=== PATIENT | male | born 1965 | race Caucasian/White ===

== ENCOUNTER 2019-04-16 22:56 | Observation (INO) ==
[2019-04-16] MEDS ORDERED: 0.9 % Sodium Chloride 1,000 ML IVC ONE (23:25)
--- NOTE | 2019-04-16 23:26 | Emergency Department Note ---
Disposition Clinical Impression: Altered mental status Qualifiers: Altered mental status type: unspecified Qualified Code(s): R41.82 - Altered mental status, unspecified Disposition: Admitted As Inpatient Condition: Good [facility] Care Provider[facility] - Forms: ED Satisfaction Letter Time of Disposition: 02:02 General Adult HPI - General Chief complaint: ED Nausea/Vomiting/Diarrhea Stated complaint: nausea and vomiting Time Seen by Provider: 04/16/19 22:58 Source: EMS Limitations: no limitations Nursing Notes Reviewed: Yes Vital Signs Reviewed: Yes - History of Present Illness HPI Narrative: Male patient presenting by EMS for nausea vomiting and not feeling well. Patient reports not feeling well. He believes that he may possibly have the flu. Was recently discharged from the the hospital here for a right sided lower extremity vascular surgery by Dr. Arriaga. Patient reports he has not been feeling well since he was discharged. He states that he has not been able to ambulate well since discharge. He does report that today he became very sick. He contributes this to having his windows open over the weekend and the cool breeze coming through. He states that today he had to crawl out into the hallway to get someone to help him. He does report one episode of nonbloody nonbilious emesis. Patient does appear to be mildly confused at this time. Does have a history of alcohol abuse. Has been admitted here for that previously. He states he is only had 3 beers today however. 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 States he has been taking his medication as prescribed he believes. Again he states his symptoms have been present since he was discharged from the hospital. Pain Scale: 0 - Related Data Home Medications Medication Instructions Recorded Confirmed Albuterol Sulfate [Proair Hfa] 2 puff IH QID PRN 02/10/19 04/04/19 Baclofen [Lioresal] 10 mg PO TID 02/10/19 04/04/19 Budesonide/Formoterol 80/4.5 2 puff IH BID 02/10/19 04/04/19 [Symbicort 80/4.5] Buspirone HCl [Buspar] 10 mg PO TID 02/10/19 04/04/19 Fluticasone Propionate Nasal 1 spray NS BID 02/10/19 04/04/19 [Flonase] Gabapentin [Neurontin] 1,200 mg PO Q8H 02/10/19 04/04/19 Hydrochlorothiazide [Microzide] 12.5 mg PO QAM 02/10/19 04/04/19 Loratadine [Allergy Relief] 10 mg PO DAILY 02/10/19 04/04/19 Melatonin 6 mg PO HS 02/10/19 04/04/19 Metoprolol Succinate [Toprol Xl] 25 mg PO HS 02/10/19 04/04/19 Multivitamin [One Daily] 1 tab PO DAILY 02/10/19 04/04/19 Omeprazole [PriLOSEC] 20 mg PO DAILY 02/10/19 04/04/19 Salsalate [Disalcid] 750 mg PO TID PRN 02/10/19 04/04/19 Acamprosate Calcium 666 mg PO TID 04/04/19 04/04/19 Aspirin [Lo-Dose Aspirin EC] 81 mg PO QAM 04/04/19 04/04/19 Atorvastatin [Lipitor] 20 mg PO HS 04/04/19 04/04/19 DULoxetine [Cymbalta] 30 mg PO DAILY 04/04/19 04/04/19 Duloxetine HCl [Cymbalta] 60 mg PO DAILY 04/04/19 04/04/19 HydrOXYzine 10 mg PO QID 04/04/19 04/04/19 Ibuprofen [Ibu] 800 mg PO TID PRN 04/04/19 04/04/19 Lidocaine [Lidocare] 1 each TD Q24H PRN 04/04/19 04/04/19 Nicotine Polacrilex [Nicotine 2 mg BC Q4H PRN 04/04/19 04/04/19 Lozenge] Trazodone HCl 150 mg PO HS PRN 04/04/19 04/04/19 Previous Rx's Medication Instructions Recorded Amoxicillin/Clavulanate [Augmentin] 875 mg PO BIDWM tablet 04/11/19 Allergies Allergy/AdvReac Type Severity Reaction Status Date / Time No Known Allergies Allergy Verified 04/16/19 23:08 All systems ED: reviewed and negative except as stated. Review of Systems: As Per HPI Constitutional: Denies: fever ENT ED: Reports: congestion (Nasal) Cardiovascular: Denies: chest pain Respiratory: Reports: cough (Reports chronic as he is a smoker) Gastrointestinal: Reports: nausea, vomiting. Denies: abdominal pain, diarrhea Integumentary: Denies: rash Neurological: Reports: weakness, confusion. Denies: headache Endocrine: Reports: fatigue Past Medical History - Past Medical History Attestation: Yes The following information was validated with the patient. Source: patient Medical history: Reports: COPD, hypertension, seizures, other Psychiatric history: Reports: anxiety, depression - Social History Smoking Status: Current every day smoker Smokeless Tobacco Status: No Alcohol use: Reports: heavy, recent Drug use: Reports: marijuana Physical Exam - General Limitations: no limitations General appearance: alert, appears intoxicated - Head Head exam: atraumatic, normocephalic, normal inspection - Eye Eye exam: Present: normal appearance, PERRL, EOMI - ENT ENT exam: normal exam, normal oropharynx, mucous membranes moist - Neck Neck exam: Present: normal inspection, full ROM, trachea midline - Chest Chest inspection: Present: normal inspection, symmetric chest wall rise. Absent: tenderness - Respiratory Respiratory exam: Present: normal lung sounds bilaterally. Absent: respiratory distress, wheezes, accessory muscle use - Cardiovascular Cardiovascular exam: Present: regular rate, normal rhythm, normal heart sounds - Abdominal Exam Abdominal exam: Present: soft, Non-Tender. Absent: tenderness, distention, guarding, rebound, rigidity, organomegaly, Allen's sign, Rovsing's sign, tenderness at McBurney's Point - Extremities Exam Extremities exam: Present: normal inspection, full ROM, normal capillary refill. Absent: tenderness, pedal edema - Neurological Exam Neurological exam: Present: alert, CN II-XII intact (Patient does have some garbled speech but it is distinguishable.), other (Knows his name. Is unaware of where he is up-to-date. Patient does have decreased movement in his lower extremities.). Absent: motor sensory deficit - Skin Skin exam: Present: warm, dry, intact, normal color. Absent: rash Course Course Narrative: Patient with a significant history of alcohol abuse. Has had withdrawal seizures previously. Patient does appear to be confused with some garbled speech. He has good finger to nose bilaterally. He has generalized weakness in his bilateral lower extremities but no focal abnormalities noted. CT head did show some microvascular changes mainly in the cerebellum that appear on previous CT. We did provide patient with a liter of fluid as well as thiamine and folate. Patient's ammonia is not significantly elevated. His blood alcohol level was at 153. We will admit patient to the hospital for further evaluation of her altered mental status and generalized weakness of his lower extremities. Patient's chest x-ray did show some low lung volumes. We will withhold antibiotics at this time as the patient does not have acute focal rhonchi in any distribution we will load and landed for repeat chest x-ray it the patient does develop symptoms. He states he does have a cough but this is not abnormal for him as he is a smoker. Patient did have a maxillary fracture that was not on previous CT as well. I do not feel this is new. Patient does report however frequent falls recently whi le at home. There is no ecchymosis to his face. No overt signs of trauma to his body. - Consultations Consultation #1: Dr Paris accepted Pt in stable condition. Time: 02:13 Vital Signs Temperature 98.3 F 04/16/19 23:09 Pulse Rate 88 04/16/19 23:09 Respiratory Rate 14 04/16/19 23:09 Blood Pressure 108/89 04/16/19 23:09 O2 Sat by Pulse Oximetry 92 04/16/19 23:09 Temperature 98.3 F 04/16/19 23:09 Pulse Rate 76 04/17/19 01:33 Respiratory Rate 16 04/17/19 01:33 Blood Pressure 106/75 04/17/19 01:33 O2 Sat by Pulse Oximetry 95 04/17/19 01:33 Oxygen Delivery Oxygen Delivery Room Air Medical Decision Making - Medical Records Medical records reviewed: Yes I reviewed the patient's medical records. - Lab Data Lab results reviewed: Yes I reviewed the patient's lab results. Result diagrams: 04/16/19 23:51 04/16/19 23:51 Lab Results 04/16/19 04/16/19 04/16/19 Range/Units 23:51 23:51 23:51 WBC 9.5 (4.3-11.1) K/mcL RBC 4.90 (4.19-5.50) M/mcL Hgb 14.8 D (12.9-16.9) g/dL Hct 43.7 (37.5-50.1) % MCV 89.2 (83.0-100.0) fL MCH 30.2 (28.0-33.3) pg MCHC 33.9 (31.6-35.5) g/dL RDW 13.8 (11.5-14.5) % Plt Count 368 D (140-400) K/mcL MPV 9.5 (9.4-12.4) fL Immature Gran % 1.2 (0-4) % Seg Neutrophils % 57.4 % Lymphocytes % 27.3 % Monocytes % 8.8 % Eosinophils % 4.0 % Basophils % 1.3 % Neutrophils # 5.4 (1.6-8.9) K/mcL Lymphocytes # 2.6 (0.6-4.6) K/mcL Monocytes # 0.8 (0.0-1.3) K/mcL Eosinophils # 0.4 (0.0-0.6) K/mcL Basophils # 0.1 (0.0-0.2) K/mcL PT 12.3 H (9.4-12.1) Seconds INR 1.1 APTT 36.9 H (26.0-36.0) Seconds Sodium 138 (136-145) mEq/L Potassium 3.9 (3.5-5.1) mEq/L Chloride 104 (98-107) mEq/L Carbon Dioxide 25 (23-29) mEq/L BUN 7 (6-20) mg/dL Creatinine 0.76 (0.70-1.30) mg/dL Est GFR ( Amer) > 60 (> 60) Est GFR (Non-Af Amer) > 60 (> 60) BUN/Creatinine Ratio 9 (6-26) Glucose 79 (70-105) mg/dL Calculated Osmolality 283 (280-300) Calcium 9.4 (8.6-10.3) mg/dL Total Bilirubin 0.4 (0.3-1.0) mg/dL Direct Bilirubin 0.1 (0.0-0.2) mg/dL Indirect Bilirubin 0.3 (0.0-1.2) mg/dL AST 27 (13-39) Units/L ALT 36 (7-52) Units/L Alkaline Phosphatase 76 (34-104) Units/L Ammonia (16-53) mcmol/L Creatine Kinase 128 (30-223) Units/L Troponin I < 0.03 (< 0.04) ng/mL Serum Total Protein 7.2 (6.4-8.9) g/dL Albumin 4.3 (3.5-5.7) g/dL Globulin 2.9 (2.4-3.5) g/dL Albumin/Globulin Ratio 1.5 (1.1-2.2) Ethyl Alcohol 153 H (Less than 10) mg/dL 04/16/19 Range/Units 23:51 WBC (4.3-11.1) K/mcL RBC (4.19-5.50) M/mcL Hgb (12.9-16.9) g/dL Hct (37.5-50.1) % MCV (83.0-100.0) fL MCH (28.0-33.3) pg MCHC (31.6-35.5) g/dL RDW (11.5-14.5) % Plt Count (140-400) K/mcL MPV (9.4-12.4) fL Immature Gran % (0-4) % Seg Neutrophils % % Lymphocytes % % Monocytes % % Eosinophils % % Basophils % % Neutrophils # (1.6-8.9) K/mcL Lymphocytes # (0.6-4.6) K/mcL Monocytes # (0.0-1.3) K/mcL Eosinophils # (0.0-0.6) K/mcL Basophils # (0.0-0.2) K/mcL PT (9.4-12.1) Seconds INR APTT (26.0-36.0) Seconds Sodium (136-145) mEq/L Potassium (3.5-5.1) mEq/L Chloride (98-107) mEq/L Carbon Dioxide (23-29) mEq/L BUN (6-20) mg/dL Creatinine (0.70-1.30) mg/dL Est GFR ( Amer) (> 60) Est GFR (Non-Af Amer) (> 60) BUN/Creatinine Ratio (6-26) Glucose (70-105) mg/dL Calculated Osmolality (280-300) Calcium (8.6-10.3) mg/dL Total Bilirubin (0.3-1.0) mg/dL Direct Bilirubin (0.0-0.2) mg/dL Indirect Bilirubin (0.0-1.2) mg/dL AST (13-39) Units/L ALT (7-52) Units/L Alkaline Phosphatase (34-104) Units/L Ammonia 31 (16-53) mcmol/L Creatine Kinase (30-223) Units/L Troponin I (< 0.04) ng/mL Serum Total Protein (6.4-8.9) g/dL Albumin (3.5-5.7) g/dL Globulin (2.4-3.5) g/dL Albumin/Globulin Ratio (1.1-2.2) Ethyl Alcohol (Less than 10) mg/dL - Radiology Data Radiology results reviewed: Yes I reviewed the patient's radiology results. Chest X-Ray 04/16/19 23:25 IMPRESSION: Low lung volume study showing bilateral lower lung increased opacity, likely atelectasis. Edema or pneumonia not excluded. Follow-up is recommended, preferably with a PA and lateral study. D/ / Lizeth Anand Cha, MD / Lizeth Anand Cha, MD Interpreting Provider: Lizeth Anand Cha, MD Head CT 04/17/19 00:00 IMPRESSION: No acute intracranial abnormality. The patient has findings of chronic microvascular change. Sinus inflammation. Deformity in the anterior right maxillary sinus wall and in the nasal bones is noted without soft tissue swelling, favoring a chronic finding. D/ / Kristen Cintron MD / Kristen Cintron MD Interpreting Provider: Kristen Cintron MD - EKG Data EKG #1 EKG attestation: Yes I reviewed and interpreted this EKG. EKG results narrative: Normal sinus rhythm at a rate of 79. NC interval is 200. QRS duration is 100. QT is 374. QTC is 429. No signs of acute ischemia. Good R-wave progression. No significant change from previous EKG dated 04/03/2019. Attestation Statement - Attestation Attestation: I, Bean Stiles, examined this patient and my medical decision-making was reviewed with the NARCOTICS DETECTIVE/PA/Advanced Practice Nurse/Resident Physician. I agree with the documented findings, disposition and treatment plan as described except to the extent set forth below. 53-year-old male presents emergency Department with concerns of difficulty with ambulation. Patient states he has had difficulty with ambulation over the past few weeks after his recent arterial stenting however it was much worse today. He also has slurred speech. He does have a history of alcohol abuse and drinks alcohol today. Patient does not have focal neurologic symptoms deficits on exam. CT of the head shows lesions of the cerebellum but did not show evidence of acute intracranial hemorrhage patient was updated on CT results.. Laboratory evaluation did not show evidence of significant normality. He will be admitted to the hospitalist for further care and evaluation.
[2019-04-17 00:10] LABS: INR 1.1; Prothrombin Time 12.3 Seconds (9.4-12.1)
[2019-04-17 00:13] LABS: Activated Partial Thrombo Time 36.9 Seconds (26.0-36.0)
[2019-04-17 00:25] LABS: Basophils # 0.1 K/mcL (0.0-0.2); Basophils % 1.3 %; Eosinophils # 0.4 K/mcL (0.0-0.6); Hematocrit 43.7 % (37.5-50.1); Hemoglobin 14.8 g/dL (12.9-16.9); Immature Granulocytes % 1.2 % (0-4); Lymphocytes # 2.6 K/mcL (0.6-4.6); Lymphocytes % 27.3 %; Mean Corpuscular HGB Conc 33.9 g/dL (31.6-35.5); Mean Corpuscular Hemoglobin 30.2 pg (28.0-33.3); Mean Corpuscular Volume 89.2 fL (83.0-100.0); Mean Platelet Volume 9.5 fL (9.4-12.4); Monocytes # 0.8 K/mcL (0.0-1.3); Monocytes % 8.8 %; Neutrophils # 5.4 K/mcL (1.6-8.9); Platelet Count 368 K/mcL (140-400); Red Cell Distribution Width 13.8 % (11.5-14.5); Segmented Neutrophils % 57.4 %; White Blood Count 9.5 K/mcL (4.3-11.1)
[2019-04-17 00:28] LABS: Alanine Aminotransferase 36 Units/L (7-52); Albumin 4.3 g/dL (3.5-5.7); Albumin/Globulin Ratio 1.5 (1.1-2.2); Alkaline Phosphatase 76 Units/L (34-104); Aspartate Amino Transferase 27 Units/L (13-39); BUN/Creatinine Ratio 9 (6-26); Bilirubin,Direct 0.1 mg/dL (0.0-0.2); Bilirubin,Indirect 0.3 mg/dL (0.0-1.2); Bilirubin,Total 0.4 mg/dL (0.3-1.0); Blood Urea Nitrogen 7 mg/dL (6-20); Calcium 9.4 mg/dL (8.6-10.3); Carbon Dioxide 25 mEq/L (23-29); Chloride 104 mEq/L (98-107); Creatine Kinase 128 Units/L (30-223); Ethanol 153 mg/dL (Less than 10); Globulin 2.9 g/dL (2.4-3.5); Glucose 79 mg/dL (70-105); Osmolality,Calculated 283 (280-300); Potassium 3.9 mEq/L (3.5-5.1); Sodium 138 mEq/L (136-145); Total Protein 7.2 g/dL (6.4-8.9); Troponin I < 0.03 ng/mL (< 0.04); eGFR For African Americans > 60 (> 60); eGFR For Non-African Americans > 60 (> 60)
[2019-04-17] MEDS: Thiamine (B-1) 100 MG, Folic Acid 1 MG, MVI, adult with vitamin K 10 ML in 0.9 % Sodi... IVPB SCH ×2 (03:19→18:35)
[2019-04-17] MEDS ORDERED: *HR* LORazepam 2 MG/ML VIAL IVP PRN ×2 (11:06)
[2019-04-17] MEDS ORDERED: Naloxone 0.4 MG/ML INJ IVP PRN (11:11)
[2019-04-17] MEDS ORDERED: 0.9 % Sodium Chloride 1,000 ML IVC SCH (11:15)
--- NOTE | 2019-04-17 11:34 | Internal Med History&Physical ---
Date of Encounter: 04/17/19 Time of Encounter: 11:34 Internal Medicine - H&P: HPI Chief complaint: Change of MS History of present illness: 53 year old male Male with a past medical history of alcohol abuse, alcohol withdrawal episodes that was complicated with seizure activity a who presented to the ER with altered mental status and inability to ambulate since the time of discharge from the hospital after he has right lower extremity vascular surgery. The patient appears to be confused bedside, and he could not provide any history except for stating that he needed to leave to lock his apartment. For the ER records he has one episode of non-bloody, nonbilious vomiting. Labs revealed alcohol level of 153, A CT scan of the head was obtained and revealed No acute intracranial abnormality. The patient has findings of chronic microvascular change. Sinus inflammation. Deformity in the anterior right maxillary sinus wall and in the nasal bones is noted without soft tissue swelling, favoring a chronic finding. The patient was admitted for further evaluation. Past Med Surg Social Fam HX - Past Medical History Medical history: COPD, hypertension, seizures, other Additional medical history: ETOH ABUSE Psychiatric history: anxiety, depression - Past Surgical History Additional surgical history: "face surgery". Right arm orthopedic surgery - Social History Smoking Status: Current every day smoker Smokeless Tobacco Status: No Alcohol use: heavy, recent Drug use: marijuana - Family History Mother Hx Family Endocrine Disorder: Yes (Hypertension) Internal Medicine - H&P: Meds Budesonide/Formoterol 80/4.5 [Symbicort 80/4.5] 2 puff IH BID 02/10/19 [History] Fluticasone Propionate Nasal [Flonase] 1 spray NS BID 02/10/19 [History] Gabapentin [Neurontin] 1,200 mg PO TID 02/10/19 [History] Acamprosate Calcium 666 mg PO TID 04/04/19 [History] DULoxetine [Cymbalta] 90 mg PO QAM 04/04/19 [History] Ibuprofen [Ibu] 800 mg PO TID PRN 04/04/19 [History] Albuterol Sulfate [Albuterol Inhaler] 2 puff IH Q4HR PRN 04/17/19 [History] Magnesium Hydroxide [Milk of Magnesia] 15 ml PO DAILY PRN 04/17/19 [History] NALOXONE 4 MG Nasal [place] [Narcan] 1 spray NS AD PRN 04/17/19 [History] Allergy/AdvReac Type Severity Reaction Status Date / Time No Known Allergies Allergy Verified 04/16/19 23:08 ROS unobtainable: due to mental status - Constitutional Vitals: Temp Pulse Resp BP Pulse Ox 98.7 F 74 18 131/85 95 04/17/19 10:41 04/17/19 10:41 04/17/19 10:41 04/17/19 10:41 04/17/19 10:41 General appearance: Present: A&O X 0 Exam: ` - Head Head exam: Present: atraumatic, normocephalic - Neck Neck exam general surgery: Present: supple, trachea midline. Absent: lymphadenopathy - Respiratory Respiratory exam: Present: CTAB. Absent: accessory muscle use, rales, rhonchi, wheezes - Cardiovascular Cardiovascular exam: Present: RRR, +S1, +S2. Absent: diastolic murmur, gallop, rubs, systolic murmur - GI/Abdominal GI/Abdominal exam: Present: normal bowel sounds, soft, no peritoneal signs. Absent: distended, tenderness - Extremities Exam Extremities exam: Present: warm, radial pulses palpable and symmetrical. Absent: calf tenderness, cyanotic, pedal edema Internal Med - H&P Results - Labs CBC & Chem 7: 04/17/19 12:28 04/17/19 12:28 Labs: Short CBC 04/16/19 Range/Units 23:51 WBC 9.5 (4.3-11.1) K/mcL Hgb 14.8 D (12.9-16.9) g/dL Hct 43.7 (37.5-50.1) % Plt Count 368 D (140-400) K/mcL Neutrophils # 5.4 (1.6-8.9) K/mcL BMP 04/16/19 23:51 Sodium 138 Potassium 3.9 Chloride 104 Carbon Dioxide 25 BUN 7 Creatinine 0.76 Glucose 79 Calcium 9.4 Cardiac Enzymes 04/16/19 Range/Units 23:51 Troponin I < 0.03 (< 0.04) ng/mL Liver Function 04/16/19 Range/Units 23:51 Total Bilirubin 0.4 (0.3-1.0) mg/dL Direct Bilirubin 0.1 (0.0-0.2) mg/dL AST 27 (13-39) Units/L ALT 36 (7-52) Units/L Alkaline Phosphatase 76 (34-104) Units/L Albumin 4.3 (3.5-5.7) g/dL - Impressions ITS Impressions Chest X-Ray 04/16/19 23:25 IMPRESSION: Low lung volume study showing bilateral lower lung increased opacity, likely atelectasis. Edema or pneumonia not excluded. Follow-up is recommended, preferably with a PA and lateral study. D/ / Lizeth Anand Cha, MD / Lizeth Anand Cha, MD Interpreting Provider: Lizeth Anand Cha, MD Head CT 04/17/19 00:00 IMPRESSION: No acute intracranial abnormality. The patient has findings of chronic microvascular change. Sinus inflammation. Deformity in the anterior right maxillary sinus wall and in the nasal bones is noted without soft tissue swelling, favoring a chronic finding. D/ / 04/17/2019 07:31:02 Kristen Cintron MD / bcanan Interpreting Provider: Kristen Cintron MD - Assessment and Plan (1) Alcoholic intoxication Status: Acute Assessment and plan: We will start patient with CIWA protocol. Qualifiers: Qualified Code(s): F10.929 - Alcohol use, unspecified with intoxication, unspecified (2) Alcohol withdrawal syndrome Status: Acute Assessment and plan: We will start patient with CIWA protocol. Qualifiers: Complication of substance-induced condition: uncomplicated Qualified Code(s): F10.230 - Alcohol dependence with withdrawal, uncomplicated (3) Atherosclerosis of [place] arteries of extremities with intermittent claudication, bilateral legs Status: Chronic (4) Facial fracture Status: Acute Assessment and plan: A CT scan of the head was obtained and revealed No acute intracranial abnormality. The patient has findings of chronic microvascular change. Sinus inflammation. Deformity in the anterior right maxillary sinus wall and in the nasal bones is noted without soft tissue swelling, favoring a chronic finding. We will consult ENT. Qualifiers: Encounter type: sequela Facial bone/location: unspecified site of maxillary bone Laterality: left Qualified Code(s): S02.40DS - Maxillary fracture, left side, sequela (5) PAD (peripheral artery disease) Status: Chronic Assessment and plan: Patient underwent right popliteal artery angioplasty on 04/09/19. He will F/U as an outpatient follow up vascular surgery. - Time Spent With Patient Total time spent is greater than 50% in coordination of care (as documented) at patient's floor/unit and/or counseling patient:
--- NOTE | 2019-04-17 12:26 | Electrocardiograph Report ---
[address] [address] Test Date: 2019-04-17 Pat Name: Miquel Rubio Department: EXAM1 Room: 3B22 Gender: M Log Snaker: : 1965 Requested By: Mary Bull Order Number: [id number] Reading MD: Bean Solis Measurements Intervals [place] Rate: 79 P: 68 [place]: 200 QRS: 56 QRSD: 100 T: 12 QT: 374 QTc: 429 Interpretive Statements Sinus rhythm Electronically Signed On 04-17-2019 12:25:16 EDT by Bean Solis
[2019-04-17] MEDS: *HR* LORazepam 2 MG/ML VIAL IVP PRN ×2 (12:32→17:39)
[2019-04-17 12:37] LABS: Basophils # 0.1 K/mcL (0.0-0.2); Basophils % 0.9 %; Eosinophils # 0.3 K/mcL (0.0-0.6); Eosinophils % 3.7 %; Hematocrit 40.7 % (37.5-50.1); Hemoglobin 14.1 g/dL (12.9-16.9); Immature Granulocytes % 0.7 % (0-4); Lymphocytes # 1.4 K/mcL (0.6-4.6); Lymphocytes % 16.1 %; Mean Corpuscular HGB Conc 34.6 g/dL (31.6-35.5); Mean Corpuscular Hemoglobin 30.3 pg (28.0-33.3); Mean Corpuscular Volume 87.5 fL (83.0-100.0); Mean Platelet Volume 9.3 fL (9.4-12.4); Monocytes # 0.8 K/mcL (0.0-1.3); Monocytes % 8.8 %; Neutrophils # 6.2 K/mcL (1.6-8.9); Platelet Count 322 K/mcL (140-400); Red Blood Count 4.65 M/mcL (4.19-5.50); Red Cell Distribution Width 13.5 % (11.5-14.5); Segmented Neutrophils % 69.8 %; White Blood Count 8.8 K/mcL (4.3-11.1)
[2019-04-17 12:56] LABS: Alanine Aminotransferase 32 Units/L (7-52); Albumin 3.9 g/dL (3.5-5.7); Albumin/Globulin Ratio 1.6 (1.1-2.2); Alkaline Phosphatase 74 Units/L (34-104); Aspartate Amino Transferase 24 Units/L (13-39); BUN/Creatinine Ratio 11 (6-26); Bilirubin,Total 0.6 mg/dL (0.3-1.0); Blood Urea Nitrogen 7 mg/dL (6-20); Calcium 8.9 mg/dL (8.6-10.3); Carbon Dioxide 26 mEq/L (23-29); Chloride 104 mEq/L (98-107); Ethanol < 10 mg/dL (Less than 10); Globulin 2.5 g/dL (2.4-3.5); Glucose 85 mg/dL (70-105); Osmolality,Calculated 289 (280-300); Potassium 3.9 mEq/L (3.5-5.1); Sodium 141 mEq/L (136-145); Total Protein 6.4 g/dL (6.4-8.9); eGFR For African Americans > 60 (> 60); eGFR For Non-African Americans > 60 (> 60)
[2019-04-17 12:57] LABS: Magnesium 1.9 mg/dL (1.6-2.6); Phosphorous 2.9 mg/dL (2.7-4.5)
[2019-04-17 15:51] VITALS: BP 133/78
[2019-04-17] MEDS ORDERED: Ipratropium/Albuterol Neb 3 ML IH PRN (16:33)
--- NOTE | 2019-04-17 17:12 | ENT - Consult Note ---
Date of Encounter: 04/17/19 Time of Encounter: 17:11 Assessment and Plan (1) Facial fracture Current Visit: Yes Status: Acute 53 yo male w/ plated L infraorbital fracture which is likely when he sustained the left maxillary wall fracture. Fractures are all old although he cannot say how hold. No need for further intervention or management. Qualifiers: Encounter type: sequela Facial bone/location: unspecified site of maxillary bone Laterality: left Qualified Code(s): S02.40DS - Maxillary fracture, left side, sequela History of Present Illness Consult date: 04/17/19 History of present illness: 53 yo male admitted for overdose. CT head performed with report of L maxillary sinus fx and BL nasal bone fxs. I reviewed these images as well as report from CT head 04/06. There is a plate at the left infraorbital rim and fractures were present on scan from 04/06. Patient does not report any fall but is a poor historian. Does not remember any facial fracture repair to account for the plate seen on CT. Denies any pain to the face. Past Med Surg Social Fam HX - Past Medical History Medical history: COPD, hypertension, seizures, other Additional medical history: ETOH ABUSE Psychiatric history: anxiety, depression - Past Surgical History Additional surgical history: "face surgery". Right arm orthopedic surgery - Social History Smoking Status: Current every day smoker Smokeless Tobacco Status: No Alcohol use: heavy, recent Drug use: marijuana - Family History Mother Hx Family Endocrine Disorder: Yes (Hypertension) Medications and Allergies Albuterol Sulfate [Proair Hfa] 2 puff IH QID PRN 02/10/19 [History] Baclofen [Lioresal] 10 mg PO TID 02/10/19 [History] Budesonide/Formoterol 80/4.5 [Symbicort 80/4.5] 2 puff IH BID 02/10/19 [History] Buspirone HCl [Buspar] 10 mg PO TID 02/10/19 [History] Fluticasone Propionate Nasal [Flonase] 1 spray NS BID 02/10/19 [History] Gabapentin [Neurontin] 1,200 mg PO Q8H 02/10/19 [History] Hydrochlorothiazide [Microzide] 12.5 mg PO QAM 02/10/19 [History] Loratadine [Allergy Relief] 10 mg PO DAILY 02/10/19 [History] Melatonin 6 mg PO HS 02/10/19 [History] Metoprolol Succinate [Toprol Xl] 25 mg PO HS 02/10/19 [History] Multivitamin [One Daily] 1 tab PO DAILY 02/10/19 [History] Omeprazole [PriLOSEC] 20 mg PO DAILY 02/10/19 [History] Salsalate [Disalcid] 750 mg PO TID PRN 02/10/19 [History] Acamprosate Calcium 666 mg PO TID 04/04/19 [History] Aspirin [Lo-Dose Aspirin EC] 81 mg PO QAM 04/04/19 [History] Atorvastatin [Lipitor] 20 mg PO HS 04/04/19 [History] DULoxetine [Cymbalta] 30 mg PO DAILY 04/04/19 [History] Duloxetine HCl [Cymbalta] 60 mg PO DAILY 04/04/19 [History] HydrOXYzine 10 mg PO QID 04/04/19 [History] Ibuprofen [Ibu] 800 mg PO TID PRN 04/04/19 [History] Lidocaine [Lidocare] 1 each TD Q24H PRN 04/04/19 [History] Nicotine Polacrilex [Nicotine Lozenge] 2 mg BC Q4H PRN 04/04/19 [History] Trazodone HCl 150 mg PO HS PRN 04/04/19 [History] Amoxicillin/Clavulanate [Augmentin] 875 mg PO BIDWM tablet 04/11/19 [Rx] Allergy/AdvReac Type Severity Reaction Status Date / Time No Known Allergies Allergy Verified 04/16/19 23:08 ENT Exam Initial Vital Signs Temp Pulse Resp BP Pulse Ox 98.3 F 88 14 108/89 92 04/16/19 23:09 04/16/19 23:09 04/16/19 23:09 04/16/19 23:09 04/16/19 23:09 - General physical appearance well developed (Patient is confused and agitated. His face reveals no edema ecchymosis or other signs to indicate acute trauma. His nose has significant deviation to the left but it is stable and non tender.) Exam Initial Vital Signs Temp Pulse Resp BP Pulse Ox 98.3 F 88 14 108/89 92 04/16/19 23:09 04/16/19 23:09 04/16/19 23:09 04/16/19 23:09 04/16/19 23:09 Results - Labs 04/17/19 12:28 04/17/19 12:28 Abnormal lab results MPV 9.3 fL (9.4-12.4) L 04/17/19 12:28 PT 12.3 Seconds (9.4-12.1) H 04/16/19 23:51 APTT 36.9 Seconds (26.0-36.0) H 04/16/19 23:51 0.65 mg/dL (0.70-1.30) L 04/17/19 12:28 Ethyl Alcohol 153 mg/dL (Less than 10) H 04/16/19 23:51 Diabetes panel 04/16/19 04/17/19 Range/Units 23:51 12:28 Sodium 138 141 (136-145) mEq/L Potassium 3.9 3.9 (3.5-5.1) mEq/L Chloride 104 104 (98-107) mEq/L Carbon Dioxide 25 26 (23-29) mEq/L BUN 7 7 (6-20) mg/dL Creatinine 0.76 0.65 L (0.70-1.30) mg/dL Glucose 79 85 (70-105) mg/dL Calcium 9.4 8.9 (8.6-10.3) mg/dL AST 27 24 (13-39) Units/L ALT 36 32 (7-52) Units/L Alkaline Phosphatase 76 74 (34-104) Units/L Albumin 4.3 3.9 (3.5-5.7) g/dL Calcium panel 04/16/19 04/17/19 04/17/19 Range/Units 23:51 12:28 12:28 Calcium 9.4 8.9 (8.6-10.3) mg/dL Phosphorus 2.9 (2.7-4.5) mg/dL Albumin 4.3 3.9 (3.5-5.7) g/dL Pituitary panel 04/16/19 04/17/19 Range/Units 23:51 12:28 Sodium 138 141 (136-145) mEq/L Potassium 3.9 3.9 (3.5-5.1) mEq/L Chloride 104 104 (98-107) mEq/L Carbon Dioxide 25 26 (23-29) mEq/L BUN 7 7 (6-20) mg/dL Creatinine 0.76 0.65 L (0.70-1.30) mg/dL Glucose 79 85 (70-105) mg/dL Calcium 9.4 8.9 (8.6-10.3) mg/dL Adrenal panel 04/16/19 04/17/19 Range/Units 23:51 12:28 Sodium 138 141 (136-145) mEq/L Potassium 3.9 3.9 (3.5-5.1) mEq/L Chloride 104 104 (98-107) mEq/L Carbon Dioxide 25 26 (23-29) mEq/L BUN 7 7 (6-20) mg/dL Creatinine 0.76 0.65 L (0.70-1.30) mg/dL Glucose 79 85 (70-105) mg/dL Calcium 9.4 8.9 (8.6-10.3) mg/dL Total Bilirubin 0.4 0.6 (0.3-1.0) mg/dL AST 27 24 (13-39) Units/L ALT 36 32 (7-52) Units/L Alkaline Phosphatase 76 74 (34-104) Units/L Albumin 4.3 3.9 (3.5-5.7) g/dL All other labs normal. Consult Discharge Plan - Plan [facility]errals: [facility] [Primary Care Provider[facility] -
[2019-04-17 18:48] LABS: Bilirubin,Urine Negative (Negative); Blood,Urine Negative (Negative); Clarity,Urine Clear (Clear); Color,Urine Yellow (Yellow); Glucose,Urine (UA) Normal (Normal); Ketones,Urine 40 mg/dL (Negative); Leukocyte Esterase,Urine Negative (Negative); Nitrite,Urine Negative (Negative); PH,Urine 7.5 pH Units (5.0-8.0); Protein,Urine Negative (Neg-Trace); Specific Gravity,Urine 1.006 (1.010-1.025); Urobilinogen,Urine Normal (Normal)
[2019-04-17 18:58] LABS: Amphetamine Screen,Urine Negative ng/mL (Cutoff=1000); Barbiturate Screen,Urine Negative ng/mL (Cutoff=200); Benzodiazepines Screen,Urine Positive ng/mL (Cutoff=200); Cannabinoid Screen,Urine Negative ng/mL (Cutoff = 50); Cocaine Screen,Urine Negative ng/mL (Cutoff= 300); Opiate Screen,Urine Negative ng/mL (Cutoff=300); Phencyclidine Screen,Urine Negative ng/mL (Cutoff=25)
--- NOTE | 2019-04-17 19:23 | Event Note ---
Date of Encounter: 04/17/19 Time of Encounter: 19:26 I was called by RN, the patient is agitated. The patient want to leave AMA, he is alert and oriented to place and time an personfabi was educated about the risk of leaving AMA, he expressed understanding and he still wanted to leave AMA.
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
== END 2019-04-17 19:40 | disposition left against medical advice (07) ==
LOC: EMEROOARM 22:56 → 3BNU 22:56
PROVIDERS: ADMIT Internal Medicine; ATTEND Internal Medicine